=== PATIENT | female | born 1985 | race African-American/Black ===

== ENCOUNTER 2019-03-08 09:37 | Emergency (ER) | payer MEDICARE, MEDICAID ==
[2019-03-08] MEDS ORDERED: Benzocaine/Butamben/Tetracain (CETACAINE - SINGLE USE) 5 gm TOPICAL ONE (10:16)
[2019-03-08] MEDS ORDERED: Ibuprofen TAB* 800 MG PO ONE (10:35)
--- NOTE | 2019-03-08 10:41 | ED ---
Throat Pain/Nasal Congestion - HPI Summary HPI Summary: The patient is a 33-year-old female who presents emergency department for dental pain and facial swelling times several days. Patient denies past medical history. Patient notes she is noted to the area and does not have a family doctor or dentist. Touching area makes symptoms worse. Nothing makes symptoms better. Symptoms are mild in severity. Notes chills without fever or vomiting. - History of Current Complaint Chief Complaint: EDDentalPain Time Seen by Provider: 03/08/19 10:08 Hx Obtained From: Patient - Allergies/Home Medications Allergies/Adverse Reactions: Allergies Allergy/AdvReac Type Severity Reaction Status Date / Time No Known Allergies Allergy Verified 03/08/19 09:44 PMH/Surg Hx/FS Hx/Imm Hx Previously Healthy: Yes Infectious Disease History: No Infectious Disease History: Denies: Traveled Outside the in Last 30 Days - Family History Known Family History: Positive: Non-Contributory - Social History Occupation: Unemployed Lives: With Family Review of Systems Positive: Chills. Negative: Fever Positive: Dental Pain Gastrointestinal: Negative Negative: Vomiting, Nausea All Other Systems Reviewed And Are Negative: Yes Physical Exam Triage Information Reviewed: Yes Vital Signs On Initial Exam: Initial Vitals Temp Pulse Resp BP Pulse Ox 96.7 F 119 18 158/94 99 03/08/19 09:44 03/08/19 09:44 03/08/19 09:44 03/08/19 09:44 03/08/19 09:44 Vital Signs Reviewed: Yes Appearance: Positive: Well-Appearing - Pt. sitting on bed in NAD. Family present. Skin: Positive: Warm, Dry Head/Face: Positive: Normal Head/Face Inspection Dental: Positive: Other - Poor dentition throughout. Gingiva surrouding bottom last left molars with fluctuance. Mild left sided facial edema. No trismus or submandibular edema. Neck: Positive: Supple, Nontender, No Lymphadenopathy Neurological: Positive: Normal, CN Intact II-III Psychiatric: Positive: Affect/Mood Appropriate Procedures - Sedation Patient Received Moderate/Deep Sedation with Procedure: No - Incision and Drainage Left Lower Site: left lower back gingiva Anesthesia: Topical - Cetacaine spray Instrument(s): Scalpel - small amount of purulent foul-smelling drainage expressed. Diagnostics - Vital Signs Vital Signs Temp Pulse Resp BP Pulse Ox 03/08/19 09:44 96.7 F 119 18 158/94 99 - Laboratory Lab Statement: Any lab studies that have been ordered have been reviewed, and results considered in the medical decision making process. EENT Course/Dx - Course Course Of Treatment: Patient presenting with dental abscess that was drained as noted above. Placed on penicillin and ibuprofen. Patient given a list of local dentists and advised to schedule an appointment as soon as possible. Return to the ER for worsening symptoms. Patient understands and agrees with plan. - Differential Diagnoses Differential Diagnoses: Dental Abscess, Dental Caries, Periodontic Abscess - Diagnoses Provider Diagnoses: Dental abscess Discharge ED - Sign-Out/Discharge Documenting (check all that apply): Patient Departure - Discharge Plan Condition: Good Disposition: HOME Prescriptions: Ibuprofen 800 mg PO TID #20 tablet Penicillin VK 500 MG TAB(NF) [Penicillin VK 500 mg Tab] 500 mg PO QID #40 tab Patient Education Materials: Dental Abscess (ED) Referrals: [facility] [Outside] [facility] [Outside] Additional Instructions: Please see a dentist as soon as possible Take antibiotic as directed Return to ER for increased pain, fever, difficulty swallowing or if concerned - Billing Disposition and Condition Condition: GOOD Disposition: Home - Attestation Statements Provider Attestation: I was available for consultation for this patient. I did not evaluate the patient, or participate in any medical decision making or disposition decisions unless I am specifically named in the chart as having consulted on the patient. If I have consulted on the patient, please see my own ED note on the patient encounter. Jhon Keita MD
[2019-03-08 11:14] VITALS: BP 147/90
== END 2019-03-08 11:15 | disposition home or self-care (01) ==
LOC: ED 09:37
DX: K04.7 Periapical abscess without sinus (principal)
CPT/HCPCS: 10060; 41800; 99282; A9270-GY